=== PATIENT | female | born 1940 | race Two or more races ===

== ENCOUNTER 2024-11-20 16:19 | Emergency (ER) | payer OTHER, SELFPAY ==
[2024-11-20 16:21] VITALS: BMI 18.1
[2024-11-20 16:40] VITALS: BP 144/75; PULSE 71; RESP 20; TEMP 37.2; O2SAT 97
--- NOTE | 2024-11-20 16:50 | XR_ITS ---
Examination: PA lateral chest 2 views Technique: Upright PA lateral chest 2 views Exam date and time: November 20, 2024 1659 hrs. Comparison August 20, 2023 Indications: Shortness of breath beginning 2 days ago. 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
--- NOTE | 2024-11-20 16:56 | PD.EDSOB ---
ED SOB =RME/HPI General Chief Complaint: Shortness of Breath/Dyspnea Stated Complaint: SOB AND COUGH Time Seen by Provider: 11/20/24 16:22 Source: patient Arrival date/time: 11/20/24 16:19 84-year-old female with no known medical history presents to the emergency room with a chief complaint of shortness of breath and cough today. Patient was recently on antibiotics and finished her Z-Sarmad on Thursday. Mode of arrival: ambulatory Limitations: no limitations Related Data Home Medications ?Medication ?Instructions ?Recorded ?Confirmed levothyroxine 75 mcg tablet 75 mcg PO QDAY 11/21/22 11/21/22 Previous Rx's ?Medication ?Instructions ?Recorded doxycycline hyclate 100 mg capsule 100 mg PO BID #14 caps 08/10/23 albuterol sulfate 90 mcg/actuation 2 inh inhalation Q6H PRN shortness 11/20/24 breath activated powder inhaler of breath or wheezing #1 ea benzonatate 100 mg capsule 100 mg PO BID PRN cough #14 caps 11/20/24 Allergies Allergy/AdvReac Type Severity Reaction Status Date / Time codeine Allergy Rash Verified 11/20/24 16:26 levofloxacin Allergy Rash Verified 11/20/24 16:26 FLU VACCINE Allergy Uncoded 11/20/24 16:26 Review of Systems Review of Systems Systems Reviewed: All systems reviewed, normal except as documented Constitutional Constitutional: Reports system reviewed and no additional complaints, except as documented, Denies fatigue, Denies fever(s), Denies headache(s) and Denies weakness Eyes Eyes: Reports system reviewed and no additional complaints, except as documented, Denies blurry vision and Denies change in vision ENT Ears, Nose, Mouth, and Throat: Reports system reviewed and no additional complaints, except as documented, Denies otalgia, Denies headache(s), Denies nasal congestion, Denies throat swelling and Denies vertigo Cardiovascular Cardiovascular: Reports system reviewed and no additional complaints, except as documented, Denies chest pain, Denies dyspnea and Denies dyspnea on exertion Respiratory Respiratory: Reports system reviewed and no additional complaints, except as documented, Denies chest congestion, Denies cough, Denies dyspnea, Denies dyspnea on exertion and Denies wheezing Gastrointestinal Gastrointestinal: Reports system reviewed and no additional complaints, except as documented, Denies abdominal pain, Denies cramping, Denies nausea and Denies vomiting Genitourinary Genitourinary: Reports system reviewed and no additional complaints, except as documented Musculoskeletal Musculoskeletal: Reports system reviewed and no additional complaints, except as documented and Denies back pain Integumentary/Breasts Skin/Breast: Reports system reviewed and no additional complaints, except as documented and Denies wounds Neurologic Neurologic: Reports system reviewed and no additional complaints, except as documented, Denies confusion, Denies headache(s), Denies lack of coordination, Denies vertigo and Denies weakness Psychiatric Psychiatric: Reports system reviewed and no additional complaints, except as documented, Denies anxiety, Denies confusion, Denies depression, Denies paranoia, Denies suicidal ideation and Denies tactile hallucinations Endocrine Endocrine: Reports system reviewed and no additional complaints, except as documented and Denies fatigue Hematologic/Lymphatic Hematologic/Lymphatic: Reports system reviewed and no additional complaints, except as documented and Denies lymphadenopathy Allergic/Immunologic Allergic/Immunologic: Reports system reviewed and no additional complaints, except as documented, Denies throat swelling, Denies urticaria and Denies wheezing Past Medical History Past Medical History NEUROLOGIC: Negative Neurological Disorders CARDIAC: Negative Cardiac Disorders or Congestive Heart Failure RESPIRATORY: Positive Asthma and Bronchitis; Negative Chronic Obstructive Pulmonary Disease (COPD) GENITOURINARY: Negative Renal Disease MUSCULOSKELETAL: Negative Musculoskeletal Disorders ENDOCRINE: Positive Hyperthyroidism; Negative Endocrine Disorders, Diabetes Mellitus Type 1 or Diabetes Mellitus Type 2 HEMATOLOGIC: Negative Sickle Cell Disease Family History FAMILY HISTORY: Negative Family Cardiac Disorders Social History SMOKING STATUS: Never smoker SECOND HAND EXPOSURE: No ED Exam General Limitations: Present no limitations General appearance: Present alert and in no apparent distress Head Head exam: Present atraumatic Eye Eye exam: Present normal appearance, PERRL and EOMI ENT ENT exam: Present normal exam, normal oropharynx and mucous membranes moist Neck Neck exam: Present normal inspection, full ROM and trachea midline Chest Chest inspection: Present normal inspection and symmetric chest wall rise Respiratory Respiratory exam: Present normal lung sounds bilaterally and wheezes; Absent respiratory distress, stridor, accessory muscle use or prolonged expiratory phase Expanded Respiratory Exam Location: Left: wheezes, Right: wheezes and Lower: wheezes Cardiovascular Cardiovascular exam: Present regular rate, normal rhythm and normal heart sounds; Absent bradycardia, tachycardia or irregular rhythm Abdominal Exam Abdominal exam: Present soft and normal bowel sounds; Absent tenderness Extremities Exam Extremities exam: Present normal inspection and full ROM Back Exam Back exam: Present normal inspection and full ROM Neurological Exam Neurological exam: Present alert, oriented X3 and CN II-XII intact Psychiatric Psychiatric exam: Present normal affect and normal mood Skin Skin exam: Present warm, dry, intact and normal color Course Quality Measures none Orders Category Date Time Status Bedside COVID-19 Antigen Test NOW Care 11/20/24 16:50 Completed Bedside Influenza A&B Antigen Test NOW Care 11/20/24 16:50 Completed XR chest 2V Stat Exams 11/20/24 16:50 Completed Albuterol/Ipratr Rt Nieves [Duoneb Rt Nieves] Med 11/20/24 16:50 Discontinued 3 ml INH X1 ONE Dexamethasone Inj [Decadron Inj] Med 11/20/24 16:50 Discontinued 10 mg PO X1 ONE Vital Signs Vital signs: Vital Signs Temperature 98.9 F 11/20/24 16:40 Pulse Rate 71 11/20/24 16:40 Respiratory Rate 20 11/20/24 16:40 Blood Pressure 144/75 H 11/20/24 16:40 Pulse Oximetry (%) 97 11/20/24 16:40 Oxygen Delivery Method Room Air 11/20/24 16:40 O2 saturation 97% within normal limits Shortness of Breath / Dyspnea MDM Narrative MDM Narrative:: 84-year-old female with no known medical history presents to the emergency room with a chief complaint of shortness of breath and cough today. Patient was recently on antibiotics and finished her Z-Sarmad on Thursday. Patient is hemodynamically stable and in no apparent distress Physical examination shows wheezing to the bilateral lower bases. A breathing treatment and steroids were given to the patient the patient was reevaluated in 1 hour with significant improvement of her wheezing. A chest x-ray was completed and shows COPD as well as a basilar bronchitis pattern. The patient is not complaining of any chest pain numbness or tingling. Patient was educated to follow-up with primary care provider and return to the emergency room for any evidence of worsening signs or symptoms Patient data External records reviewed:: [facility] previous records Clinical information provided by:: patient and family Social determinants that could affect healthcare access:: none Patient has the following chronic illnesses:: Hypothyroidism How is presenting disease/condition affected by chronic disease/condition?: no chronic disease Evaluation data The following diagnostics were reviewed and interpreted by me:: lab results and radiology exam(s) Lab and/or radiology exams considered but not ordered:: Labs and radiology exams considered and ordered Interpretation Summary: Chest e-wop-[id number]: COPD with prominent increased AP dimension chest Normal heart size Accentuation basilar bronchovascular markings No lobar pneumonia Prominent osteopenia, 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 Impression: COPD Basilar bronchitis pattern Medications / Prescriptions Medications or Prescriptions considered but not ordered:: Medication given Medication administrations:: Medication Administration History Discontinued Medications Albuterol/Ipratropium (Albuterol/Ipratropium (Duoneb) Rt Nieves 3 Ml Nebu) 3 ml INH X1 ONE Stop: 11/20/24 16:51 Last Admin: 11/20/24 17:08 Dose: 3 ml Documented By: VIOLETTA Dexamethasone Sodium Phosphate (Dexamethasone Sod Phos Inj 10 Mg/Ml Vial) 10 mg PO X1 ONE Stop: 11/20/24 16:51 Last Admin: 11/20/24 17:06 Dose: 10 mg Documented By: KF Medication given Consultations Consultation(s) initiated? (list below): No Diagnosis Shortness of Breath Differential Diagnosis: acute exacerbation of chronic obstructive airways disease, community acquired pneumonia, asthma with exacerbation and other (Bronchitis) Most likely diagnosis given after review of the tests above:: Bronchitis Admission Indicated Admission indicated?: not indicated Admission Request Was there a request for admission?: No Disposition Plan Disposition Plan: Discharge Discharge Attestation Discharge Attestation: The patient and all family members were given an opportunity to ask questions and understood the discharge instructions. Discharge instructions specifically effects, indications for sooner follow up or return to the emergency department, and the expected course of current diagnosis. Patient condition: Stable Discharge Plan Plan Patient Disposition: HOME (Self Care) Disposition Comment: Stable Prescriptions/Referrals Prescriptions/Med Rec: New albuterol sulfate 90 mcg/actuation aerosol powdr breath activated 2 inh inhalation Q6H PRN (Reason: shortness of breath or wheezing) Qty: 1 0RF benzonatate 100 mg capsule 100 mg PO BID PRN (Reason: cough) Qty: 14 0RF No Action levothyroxine 75 mcg tablet 75 mcg PO QDAY doxycycline hyclate 100 mg capsule 100 mg PO BID Qty: 14 0RF Problem List Clinical Impression: COPD (chronic obstructive pulmonary disease), Bronchitis Patient/Caregiver Discharge Instructions Education Materials: COPD: Using Inhalers, ED Bronchitis with Wheezing (Adult) Additional Instructions: Please follow-up with your primary care provider in the next 24 to 48 hours. Chest x-ray shows COPD I attached a copy of the x-ray report. For any evidence of worsening signs or symptoms please return to the emergency room immediately Print Language: Divehi Stand Alone Forms: Stefany Award Info., Patient Portal Info Letter PA/PLATEN DRIER OPERATOR Supervising Physician PA/PLATEN DRIER OPERATOR Supervising Physician: Dr Walters
[2024-11-20] MEDS: DEXAMETHASONE SOD PHOS INJ 10 MG/ML VIAL PO (17:06)
[2024-11-20] MEDS: ALBUTEROL/IPRATROPIUM (Duoneb) RT SOL 3 ML NEBU INH (17:08)
[2024-11-20 17:11] VITALS: PULSE 51; RESP 16; O2SAT 99
== END 2024-11-20 18:06 | disposition home or self-care (01) ==
LOC: SERX 18:30
PROVIDERS: Emergency Provider Emergency Medicine
DX: J44.89 Other specified chronic obstructive pulmonary disease (principal)
CPT/HCPCS: 71046; 87400; 87811; 94640; 99283; A9270; J1100

== ENCOUNTER 2024-12-22 13:26 | Emergency (ER) | payer OTHER, SELFPAY ==
--- NOTE | 2024-12-22 13:29 | EKG_ITS ---
[facility] Test Date: 2024-12-22 Pat Name: ROSHAN BAE Department: Room: - Gender: Female End User Support Specialist: : [id number] Requested By: Baldo Barlow (STEPHY) Order Number: [id number] Reading MD: Baldo Barlow (REAL ESTATE CLOSING COORDINATOR) Measurements Intervals [place] Rate: 56 P: 43 DC: 175 QRS: -37 QRSD: 141 T: 12 QT: 469 QTc: 455 Interpretive Statements SINUS BRADYCARDIA LEFT AXIS DEVIATION [QRS AXIS < -30] RIGHT BUNDLE BRANCH BLOCK [120+ ms QRS DURATION, UPRIGHT V1, 40+ ms S IN I/aVL/V4/V5/V6] Compared to ECG 03/26/2023 22:36:11 Left-axis deviation now present Ventricular premature complex(es) no longer present /store/S0/[id number]/ecg/[id number].pdf
[2024-12-22 13:39] VITALS: BP 138/80; PULSE 59; RESP 14; TEMP 36.6; O2SAT 99
[2024-12-22 13:40] VITALS: BMI 28.2
--- NOTE | 2024-12-22 13:56 | XR_ITS ---
Examination: PA lateral chest 2 views TECHNIQUE: Upright PA lateral chest 2 views Exam date and time: December 22, 2024 1417 hours INDICATIONS: Chest pain coughing beginning one week ago. FINDINGS: Normal heart size Marked increased AP dimension chest Kyphosis dorsal spine No lobar pneumonia IMPRESSION: COPD with significant hyperexpansion
--- NOTE | 2024-12-22 13:56 | PD.EDRME ---
Rapid Medical Screening Exam E Arrival date/time: 12/22/24 13:26 84-year-old female presents to the emergency department complaints of chest pain, congestion and shortness of breath Chief Complaint: Chest Pain Vital signs: Vital Signs Temperature 97.9 F 12/22/24 13:39 Pulse Rate 59 L 12/22/24 13:39 Respiratory Rate 14 12/22/24 13:39 Blood Pressure 138/80 H 12/22/24 13:39 Pulse Oximetry (%) 99 12/22/24 13:39 Oxygen Delivery Method Room Air 12/22/24 13:39
[2024-12-22 14:13] LABS: Basophils # (Auto) 0.1 Thou/mm3 (0.0-0.2); Basophils % (Auto) 1 % (0-2.5); Eosinophils # (Auto) 0.1 Thou/mm3 (0.0-0.5); Eosinophils % (Auto) 1 % (0-10); Hematocrit 41.7 % (36.0-46.0); Hemoglobin 13.5 g/dL (12.0-16.0); Immature Granulocytes % (Auto) 0 % (0-0); Immature Granulocytes Auto 0.01 Thou/mm3 (0.00-0.00); Lymphocytes # (Auto) 1.9 Thou/mm3 (1.0-4.8); Lymphocytes % (Auto) 39 % (10-50); Mean Corpuscular HGB Conc 32.4 g/dl (31.0-37.0); Mean Corpuscular Hemoglobin 28.4 pg (25.0-35.0); Mean Corpuscular Volume 88 fL (80-100); Monocytes # (Auto) 0.7 Thou/mm3 (0.0-0.8); Monocytes % (Auto) 14 % (0-12); Neutrophils # (Auto) 2.1 Thou/mm3 (1.8-7.7); Neutrophils % (Auto) 45 % (37-80); Nucleated Red Blood Cell % 0 /100 WBC (0); Platelet Count 337 Thou/mm3 (140-440); RDW Standard Deviation 46.9 fL (36.4-46.3); Red Blood Count 4.76 Miln/mm3 (4.00-5.20); White Blood Count 4.8 Thou/mm3 (3.6-11.0)
[2024-12-22 14:27] LABS: B-Type Natriuretic Peptide 35 pg/mL (0-100)
[2024-12-22 14:29] LABS: Alanine Aminotransferase 11 U/L (10-49); Albumin, Serum 4.3 gm/dL (3.4-4.8); Albumin/Globulin Ratio 1.5 (1.2-2.2); Alkaline Phosphatase 104 U/L (46-116); Anion Gap 8 (7-16); Aspartate Amino Transferase 19 U/L (0-34); BUN/Creatinine Ratio 14 Ratio (12-20); Bilirubin,Total 0.5 mg/dL (0.3-1.2); Blood Urea Nitrogen 13 mg/dL (9-23); Calcium 9.2 mg/dL (8.3-10.6); Calcium (Corrected) 9.2 mg/dL (8.5-10.1); Carbon Dioxide 25.6 mMol/L (20.0-31.0); Chloride 106 mMol/L (98-107); Creatinine (Component) 0.9 mg/dL (0.6-1.3); Estimated Creatinine Clearance 34.4 mL/min (>60); Globulin 2.8 gm/dL (2.3-3.5); Glucose 87 mg/dL (74-106); Osmolality,Calculated 278 (275-295); Potassium 4.2 mMol/L (3.4-5.1); Sodium 140 mMol/L (136-145); Total Protein 7.1 gm/dL (5.7-8.2); Troponin I < 0.002 ng/mL (0.0-0.045); eGFR > 60 See Note
[2024-12-22 15:15] LABS: Collection Type, Urine Clean Catch
[2024-12-22 15:28] LABS: Bilirubin,Urine Negative (Negative); Blood,Urine Negative (Negative); Clarity,Urine Clear (Clear/Hazy); Color,Urine Yellow (Lt Yel-Yel); Culture Indicated,Urine Not Indicated; Glucose, Urine Negative (Negative); Ketones,Urine Negative (Negative); Leukocyte Esterase,Urine Positive (Negative); Nitrite,Urine Negative (Negative); PH,Urine 5.5 (5.0-7.0); Protein,Urine Trace (Neg - Trace); RBC,Urine 2 /hpf (0-3); Specific Gravity,Urine 1.029 (1.001-1.035); Squamous Epithelial Cell,Urine 1 /hpf (0-5); Urobilinogen,Urine Negative mg/dL (0.0-1.0); WBC,Urine 3 /hpf (0-5)
--- NOTE | 2024-12-22 16:41 | EDNOTE_ITS ---
Upper Respiratory Inf. RME/HPI General Chief Complaint: Chest Pain Stated Complaint: CX / BACK PAIN X 1 WK Arrival date/time: 12/22/24 13:26 RME / HPI RME / HPI Narrative: 12/22/24 13:26 84-year-old female presents to the emergency department complaints of chest pain, congestion and shortness of breath DR. BRUNNER MAIN ED EVALUATION: 84 year old female with past medical history significant for hypothyroidism and arthritis presents to the Emergency Department accompanied by her daughter with complaint of a productive cough, coughing a lot of phlegm especially at night. Daughter states that she was recently sick 1.5 months ago and got better for a week and then started again with a cough. Associated symptoms include shortness of breath. Patient denies any of the following: fevers, chills, being a smoker, history of valley fever, or any other symptoms at this time. PCP: Dr. Dos Sanots. Related Data Home Medications ?Medication ?Instructions ?Recorded ?Confirmed levothyroxine 75 mcg tablet 75 mcg PO QDAY 11/21/22 Previous Rx's ?Medication ?Instructions ?Recorded doxycycline hyclate 100 mg capsule 100 mg PO BID #14 c aps 08/10/23 albuterol sulfate 90 mcg/actuation 2 inh inhalation Q6 H PRN shortness 11/20/24 breath activated powder inhaler of breath or wheezing #1 ea benzonatate 100 mg capsule 100 mg PO BID PRN cough #14 caps 11/20/24 amoxicillin 875 mg-potassium 1 tab PO Q12H 5 days #10 tabs 12/22/24 clavulanate 125 mg tablet Allergies Allergy/AdvReac Type Severity Reaction Status Date / Time codeine Allergy Rash Verified 12/22/24 13:29 levofloxacin Allergy Rash Verified 12/22/24 13:29 FLU VACCINE Allergy Uncoded 12/22/24 13:29 Review of Systems Review of Systems Systems Reviewed: All systems reviewed, normal except as documented Past Medical History Past Medical History RESPIRATORY: Positive Asthma and Bronchitis ENDOCRINE: Positive Hypothyroidism Family History FAMILY HISTORY: Negative Family Cardiac Disorders Social History SMOKING STATUS: Never smoker SECOND HAND EXPOSURE: No ED Exam Narrative Physical exam: GENERAL APPEARANCE: AxOx4, generally well-appearing, no acute distress. HEENT: NC, AT. MMM. EOMI, clear conjunctiva, oropharynx clear. NECK: Supple without lymphadenopathy. No stiffness or restricted ROM. HEART: Normal rate and regular rhythm, normal S1/S1, no m/r/g LUNGS: CTAB, moving air well. No crackles or wheezes are heard. ABDOMEN: Soft, nontender, nondistended with good bowel sounds heard. BACK: No midline C/T/L spine pain or deformity, No CVAT, no obvious deformity. EXTREMITIES: Without cyanosis, clubbing or edema. MUSCULOSKELETAL: FROM of all major joints, no chest tenderness NEUROLOGICAL: Grossly nonfocal. Alert and oriented, moving all 4 extremities. CN not formally tested but appear grossly intact. Observed to ambulate with normal gait. Skin: Warm and dry without any rash. Course Quality Measures none Orders Category Date Time Status Bedside COVID-19 Antigen Test NOW Care 12/22/24 13:56 Completed Bedside Influenza A&B Antigen Test NOW Care 12/22/24 13:56 Completed EKG (ED ONLY) *Do not use* NOW Care 12/22/24 13:29 Completed EKG (ED Only) Stat Exams 12/22/24 13:29 Draft XR chest 2V Stat Exams 12/22/24 13:56 Completed BNP [B-Type Natriuretic Peptide] Stat Lab 12/22/24 14:03 Completed CBC Stat Lab 12/22/24 14:03 Completed Comprehensive Metabolic Panel Stat Lab 12/22/24 14:03 Completed Troponin I Stat Lab 12/22/24 14:03 Completed UA, C/S IF [Urinalysis, C/S if Indicated] Stat Lab 12/22/24 15:05 Completed Vital Signs Vital signs: Vital Signs Temperature 97.9 F 12/22/24 13:39 Pulse Rate 59 L 12/22/24 13:39 Respiratory Rate 14 12/22/24 13:39 Blood Pressure 138/80 H 12/22/24 13:39 Pulse Oximetry (%) 99 12/22/24 13:39 Oxygen Delivery Method Room Air 12/22/24 13:39 Procedures -ED EKG Interpretation #1: Date of EK12/22/24 Time of EK:36 Rate: 56 Interpretation: Interpreted by me Additional EKG comment: sinus bradycardia, rate 56, widen QRS, right bundle branch block pattern, no acute ST wave changes, nonspecific T wave changes Upper Respiratory Infection MDM Narrative MDM Narrative:: I, Maria Elena Giovani, am scribing for and in the presence of Dr. Brunner. Patient data External records reviewed:: [facility] previous records (Reviewed last ED visit dated 11/20/24, discharged with the following: Bronchitis) Clinical information provided by:: patient and family (daughter who translated) Social determinants that could affect healthcare access:: none Patient has the following chronic illnesses:: Hypothyroidism and arthritis How is presenting disease/condition affected by chronic disease/condition?: uneffected by Evaluation data The following diagnostics were reviewed and interpreted by me:: lab results, radiology exam(s) and EKG tracing(s) Lab and/or radiology exams considered but not ordered:: none Interpretation Summary: Procedure(s): XR chest 2V Accession Number(s): [id number] cc: Yen (STEPHY),Baldo KEYES; Iker Sanchez MD; Macey Dos Santos MD~ Examination: PA lateral chest 2 views TECHNIQUE: Upright PA lateral chest 2 views Exam date and time: December 22, 2024 1417 hours INDICATIONS: Chest pain coughing beginning one week ago. FINDINGS: Normal heart size Marked increased AP dimension chest Kyphosis dorsal spine No lobar pneumonia IMPRESSION: COPD with significant hyperexpansion Dictated By: Iker Sanchez MD Medications / Prescriptions Medications or Prescriptions considered but not ordered:: none Medication administrations:: none Consultations Consultation(s) initiated? (list below): No Diagnosis Upper Respiratory Differential Diagnosis: upper respiratory infection, viral infection, influenza and other (chronic lung disease) Most likely diagnosis given after review of the tests above:: Chronic cough Admission Indicated Admission indicated?: not indicated Admission Request Was there a request for admission?: No Disposition Plan Disposition Plan: Discharge Discharge Attestation Discharge Attestation: The patient and all family members were given an opportunity to ask questions and understood the discharge instructions. Discharge instructions specifically effects, indications for sooner follow up or return to the emergency department, and the expected course of current diagnosis. Patient condition: Stable Discharge Plan Plan Patient Disposition: HOME (Self Care) Prescriptions/Referrals Prescriptions/Med Rec: New amoxicillin-pot clavulanate 875-125 mg tablet 1 tab PO Q12H 5 Days Qty: 10 0RF No Action levothyroxine 75 mcg tablet 75 mcg PO QDAY doxycycline hyclate 100 mg capsule 100 mg PO BID Qty: 14 0RF albuterol sulfate 90 mcg/actuation aerosol powdr breath activated 2 inh inhalation Q6H PRN (Reason: shortness of breath or wheezing) Qty: 1 0RF benzonatate 100 mg capsule 100 mg PO BID PRN (Reason: cough) Qty: 14 0RF Referrals: Macey Dos Santos MD [Primary Care Provider] - In 1 week Problem List Clinical Impression: Chronic cough Patient/Caregiver Discharge Instructions Education Materials: ED Cough Chronic Uncertain Cause Adult Additional Instructions: Puede usar los aerosoles nasales Flonase o Nasonex de venta rashel, dos aplicaciones por fosa nasal perry vez al d?a ravindra los pr?ximos 10 d?as. Aumente la humedad del vapor para despejar los senos paranasales, especialmente por la noche, y as? facilitar el piotr?o. Consulte con grande m?dico de cabecera en 5 a 7 d?as si los s?ntomas no mejoran. Puede regresar a urgencias antes si los s?ntomas empeoran o si nota alg?n problema nuevo o preocupante. Print Language: Malay Stand Alone Forms: Stefany Award Info., Patient Portal Info Letter
[2024-12-22 17:00] VITALS: PULSE 88; RESP 16; O2SAT 99
== END 2024-12-22 17:01 | disposition home or self-care (01) ==
PROVIDERS: Nurse Practitioner Primary Care; Emergency Provider Emergency Medicine; PCP Family Medicine
DX: J44.89 Other specified chronic obstructive pulmonary disease (principal); R00.1 Bradycardia, unspecified; I45.10 Unspecified right bundle-branch block
CPT/HCPCS: 36415; 71046; 80053; 81001; 83880; 84484; 85025; 87400; 87811; 93005; 99283

== ENCOUNTER → 2024-12-23 | Outpatient (CLI) | payer OTHER, SELFPAY ==
[2024-12-23 12:04] LABS: Basophils # (Auto) 0.1 Thou/mm3 (0.0-0.2); Basophils % (Auto) 1 % (0-2.5); Eosinophils # (Auto) 0.1 Thou/mm3 (0.0-0.5); Eosinophils % (Auto) 3 % (0-10); Hematocrit 43.1 % (36.0-46.0); Immature Granulocytes % (Auto) 0 % (0-0); Immature Granulocytes Auto 0.02 Thou/mm3 (0.00-0.00); Lymphocytes # (Auto) 1.7 Thou/mm3 (1.0-4.8); Lymphocytes % (Auto) 37 % (10-50); Mean Corpuscular HGB Conc 32.5 g/dl (31.0-37.0); Mean Corpuscular Volume 86 fL (80-100); Monocytes # (Auto) 0.5 Thou/mm3 (0.0-0.8); Monocytes % (Auto) 10 % (0-12); Neutrophils # (Auto) 2.2 Thou/mm3 (1.8-7.7); Neutrophils % (Auto) 49 % (37-80); Nucleated Red Blood Cell % 0 /100 WBC (0); Platelet Count 336 Thou/mm3 (140-440); RDW Standard Deviation 45.5 fL (36.4-46.3); White Blood Count 4.5 Thou/mm3 (3.6-11.0)
[2024-12-23 12:13] LABS: Glucose Estimated Average 103 mg/dL (80-131); Hemoglobin A1C 5.2 % Hgb (4.8-6.0)
[2024-12-23 12:18] LABS: Alanine Aminotransferase 12 U/L (10-49); Albumin, Serum 4.3 gm/dL (3.4-4.8); Albumin/Globulin Ratio 1.5 (1.2-2.2); Alkaline Phosphatase 103 U/L (46-116); Anion Gap 9 (7-16); Aspartate Amino Transferase 20 U/L (0-34); BUN/Creatinine Ratio 14 Ratio (12-20); Bilirubin,Total 0.4 mg/dL (0.3-1.2); Blood Urea Nitrogen 13 mg/dL (9-23); Calcium 9.4 mg/dL (8.3-10.6); Calcium (Corrected) 9.4 mg/dL (8.5-10.1); Carbon Dioxide 26.1 mMol/L (20.0-31.0); Cardiac Risk Estimate 3.5 RATIO (3.7-5.6); Chloride 107 mMol/L (98-107); Cholesterol 214 mg/dL (132-200); Creatinine (Component) 0.9 mg/dL (0.6-1.3); Free T4 (Free Thyroxine) 1.07 ng/dL (0.89-1.76); Globulin 2.9 gm/dL (2.3-3.5); Glucose 94 mg/dL (74-106); HDL Cholesterol 62 mg/dL (40-60); LDL Cholesterol,Calculated 134 mg/dL (0-130); Osmolality,Calculated 283 (275-295); Potassium 4.3 mMol/L (3.4-5.1); Sodium 142 mMol/L (136-145); Thyroid Stimulating Hormone 4.94 uIU/mL (0.55-4.78); Total Protein 7.2 gm/dL (5.7-8.2); Triglycerides 89 mg/dL (30-150); eGFR > 60 See Note
[2024-12-23 12:20] LABS: Folate 15.46 ng/mL (>5.38); Vitamin B12 461 pg/mL (211-911)
== END | disposition home or self-care (01) ==
LOC: COPL 10:49
PROVIDERS: PCP Family Medicine; Referring Provider Student in an Organized Health Care Education/Training Program; Visit Provider Student in an Organized Health Care Education/Training Program
DX: E03.9 Hypothyroidism, unspecified (principal); J44.9 Chronic obstructive pulmonary disease, unspecified; F33.1 Major depressive disorder, recurrent, moderate; E78.5 Hyperlipidemia, unspecified
CPT/HCPCS: 36415; 80053; 80061; 82607; 82746; 83036; 84439; 84443; 85025

== ENCOUNTER → 2025-04-11 | Outpatient (CLI) | payer OTHER, SELFPAY ==
[2025-04-11 11:58] LABS: Thyroid Stimulating Hormone 0.17 uIU/mL (0.55-4.78)
[2025-04-14 06:56] LABS: ANA Screen, IFA NEGATIVE (NEGATIVE)
== END | disposition home or self-care (01) ==
LOC: COPL 10:41
PROVIDERS: PCP Family Medicine; Referring Provider Specialist; Visit Provider Specialist
DX: R13.10 Dysphagia, unspecified (principal)
CPT/HCPCS: 36415; 84443; 86038

== ENCOUNTER → 2025-07-05 | Outpatient (CLI) | payer OTHER, SELFPAY ==
[2025-07-05 10:28] LABS: Basophils # (Auto) 0.1 Thou/mm3 (0.0-0.2); Basophils % (Auto) 1 % (0-2.5); Eosinophils # (Auto) 0.1 Thou/mm3 (0.0-0.5); Eosinophils % (Auto) 1 % (0-10); Hematocrit 40.6 % (36.0-46.0); Hemoglobin 13.4 g/dL (12.0-16.0); Immature Granulocytes Auto 0.02 Thou/mm3 (0.00-0.00); Lymphocytes # (Auto) 1.9 Thou/mm3 (1.0-4.8); Lymphocytes % (Auto) 30 % (10-50); Mean Corpuscular HGB Conc 33.0 g/dl (31.0-37.0); Mean Corpuscular Hemoglobin 29.8 pg (25.0-35.0); Mean Corpuscular Volume 90 fL (80-100); Monocytes # (Auto) 0.4 Thou/mm3 (0.0-0.8); Monocytes % (Auto) 7 % (0-12); Neutrophils # (Auto) 3.8 Thou/mm3 (1.8-7.7); Neutrophils % (Auto) 61 % (37-80); Nucleated Red Blood Cell # 0.00 Thou/mm3 (0.00-0.00); Nucleated Red Blood Cell % 0 /100 WBC (0); Platelet Count 360 Thou/mm3 (140-440); RDW Standard Deviation 46.5 fL (36.4-46.3); Red Blood Count 4.49 Miln/mm3 (4.00-5.20); White Blood Count 6.3 Thou/mm3 (3.6-11.0)
[2025-07-05 10:42] LABS: Glucose Estimated Average 100 mg/dL (80-131); Hemoglobin A1C 5.1 % Hgb (4.8-6.0)
[2025-07-05 10:49] LABS: Folate 18.73 ng/mL (>5.38); Vitamin B12 389 pg/mL (211-911)
[2025-07-05 11:05] LABS: Alanine Aminotransferase 7 U/L (10-49); Albumin, Serum 4.4 gm/dL (3.4-4.8); Albumin/Globulin Ratio 1.8 (1.2-2.2); Alkaline Phosphatase 91 U/L (46-116); Anion Gap 10 (7-16); Aspartate Amino Transferase 18 U/L (0-34); BUN/Creatinine Ratio 10 Ratio (12-20); Bilirubin,Total 0.9 mg/dL (0.3-1.2); Blood Urea Nitrogen 9 mg/dL (9-23); Calcium 9.6 mg/dL (8.3-10.6); Calcium (Corrected) 9.6 mg/dL (8.5-10.1); Carbon Dioxide 25.3 mMol/L (20.0-31.0); Cardiac Risk Estimate 3.3 RATIO (3.7-5.6); Chloride 110 mMol/L (98-107); Cholesterol 208 mg/dL (132-200); Creatinine (Component) 0.9 mg/dL (0.6-1.3); Free T4 (Free Thyroxine) 1.43 ng/dL (0.89-1.76); Globulin 2.5 gm/dL (2.3-3.5); Glucose 93 mg/dL (74-106); HDL Cholesterol 64 mg/dL (40-60); LDL Cholesterol,Calculated 122 mg/dL (0-130); Osmolality,Calculated 287 (275-295); Potassium 4.0 mMol/L (3.4-5.1); Sodium 145 mMol/L (136-145); Thyroid Stimulating Hormone 0.32 uIU/mL (0.55-4.78); Total Protein 6.9 gm/dL (5.7-8.2); Triglycerides 112 mg/dL (30-150); eGFR > 60 See Note
== END | disposition home or self-care (01) ==
LOC: COPL 09:50
PROVIDERS: PCP Family Medicine; Referring Provider Student in an Organized Health Care Education/Training Program; Visit Provider Student in an Organized Health Care Education/Training Program
DX: E03.9 Hypothyroidism, unspecified (principal); F33.1 Major depressive disorder, recurrent, moderate; G47.01 Insomnia due to medical condition
CPT/HCPCS: 36415; 80053; 80061; 82607; 82746; 83036; 84439; 84443; 85025

== ENCOUNTER → 2025-07-28 | Outpatient (CLI) | payer OTHER, SELFPAY ==
[2025-07-28 13:41] VITALS: PULSE 64
[2025-07-28] MEDS: ALBUTEROL RT 2.5 MG/3 ML NEBU (13:41)
[2025-07-28 13:42] VITALS: PULSE 63; PULSE 64; RESP 16; RESP 20; O2SAT 98; O2SAT 99
== END | disposition home or self-care (01) ==
PROVIDERS: PCP Family Medicine; Referring Provider Specialist; Visit Provider Specialist
DX: R06.02 Shortness of breath (principal)
CPT/HCPCS: 94060; 94640; 94726; 94729